=== PATIENT | male | born 1945 | race Caucasian/White ===

== ENCOUNTER → 2024-10-13 | Outpatient (CLI) | payer MEDICARE, BC, SELFPAY ==
--- NOTE | 2024-10-13 11:51 | XR_ITS ---
Examination: Abdomen AP single view Technique: AP portable supine abdomen, single view Exam date and time: October 13, 2024 1257 hours INDICATIONS: Abdominal pain this week FINDINGS: Right renal calculi, the largest 6 mm Nonobstructive bowel gas pattern No calcified gallstones noted IMPRESSION: Right renal calculi
== END | disposition home or self-care (01) ==
LOC: CDIM 11:39
PROVIDERS: Referring Provider Specialist; Visit Provider Specialist
DX: N20.0 Calculus of kidney (principal)
CPT/HCPCS: 74018

== ENCOUNTER → 2024-10-28 | Outpatient (CLI) | payer MEDICARE, BC, SELFPAY ==
[2024-10-28 11:00] LABS: Prostate Specific Antigen 5.55 ng/mL (0-4.00)
== END | disposition home or self-care (01) ==
LOC: COPL 09:00
PROVIDERS: PCP Internal Medicine; Referring Provider Urology; Visit Provider Urology
DX: R97.20 Elevated prostate specific antigen [PSA] (principal)
CPT/HCPCS: 36415; 84153

== ENCOUNTER 2024-12-01 06:15 | Day surgery (SDC) | payer MEDICARE, BC, SELFPAY ==
--- NOTE | 2024-11-30 07:00 | EKG_ITS ---
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
[2024-11-30 09:50] VITALS: BMI 23.9
[2024-11-30 12:10] LABS: Basophils # (Auto) 0.1 Thou/mm3 (0.0-0.2); Basophils % (Auto) 1 % (0-2.5); Eosinophils # (Auto) 0.2 Thou/mm3 (0.0-0.5); Eosinophils % (Auto) 2 % (0-10); Hematocrit 42.1 % (41.0-53.0); Immature Granulocytes % (Auto) 0 % (0-0); Immature Granulocytes Auto 0.02 Thou/mm3 (0.00-0.00); Lymphocytes # (Auto) 2.4 Thou/mm3 (1.0-4.8); Lymphocytes % (Auto) 31 % (10-50); Mean Corpuscular HGB Conc 33.3 g/dl (31.0-37.0); Mean Corpuscular Hemoglobin 31.4 pg (25.0-35.0); Mean Corpuscular Volume 94 fL (80-100); Monocytes # (Auto) 0.5 Thou/mm3 (0.0-0.8); Monocytes % (Auto) 7 % (0-12); Neutrophils # (Auto) 4.6 Thou/mm3 (1.8-7.7); Neutrophils % (Auto) 59 % (37-80); Nucleated Red Blood Cell % 0 /100 WBC (0); Platelet Count 265 Thou/mm3 (140-440); Red Blood Count 4.46 Miln/mm3 (4.50-5.90); White Blood Count 7.8 Thou/mm3 (3.8-10.6)
[2024-11-30 12:24] LABS: INR 1.1 (0.9-1.3); Prothrombin Time 11.5 Seconds (9.0-12.2)
[2024-11-30 12:31] LABS: Alanine Aminotransferase 13 U/L (10-49); Albumin, Serum 4.4 gm/dL (3.4-4.8); Albumin/Globulin Ratio 2.1 (1.2-2.2); Alkaline Phosphatase 113 U/L (46-116); Anion Gap 6 (7-16); Aspartate Amino Transferase < 8 U/L (0-34); BUN/Creatinine Ratio 25 Ratio (12-20); Bilirubin,Total 0.7 mg/dL (0.3-1.2); Blood Urea Nitrogen 25 mg/dL (9-23); Carbon Dioxide 26.6 mMol/L (20.0-31.0); Chloride 106 mMol/L (98-107); Estimated Creatinine Clearance 61.8 mL/min (>60); Globulin 2.1 gm/dL (2.3-3.5); Glucose 92 mg/dL (74-106); Osmolality,Calculated 281 (275-295); Potassium 3.9 mMol/L (3.4-5.1); Sodium 139 mMol/L (136-145); Total Protein 6.5 gm/dL (5.7-8.2); eGFR > 60 See Note
--- NOTE | 2024-11-30 14:40 | SUR.PREOP ---
Pt notified to come in at 0630 tomorrow for surgery.
--- NOTE | 2024-11-30 14:57 | SUR.PREOP ---
Cardiac records reviewed with Dr Montgomery.
[2024-12-01] VITALS (14 sets, daily range): BP systolic 114–165; BP diastolic 68–98; PULSE 52–108; RESP 12–20; TEMP 36.2–36.8; O2SAT 91–98; BMI 23.6
--- NOTE | 2024-12-01 09:21 | PD.SUROPNT ---
Date of Procedure 12/01/24 Pre Op Diagnosis Symptomatic cholelithiasis Post Op Diagnosis Cholelithiasis with cholecystitis Procedure Laparoscopic cholecystectomy Findings Moderately distended gallbladder with multiple gallstones and chronic cholecystitis. Anterior surface of the liver was smooth without nodules or any lesions Procedure Description Patient was brought into the operating room in supine position. After administration of general endotracheal anesthesia abdomen was prepped and draped in standard surgical manner. A Veress needle was inserted through the umbilicus and pneumoperitoneum was obtained up to 15 mmHg. The Veress needle was then removed, a 5 mm infraumbilical incision was made and the 5mm trocar was inserted. Laparoscopic camera was placed. Under direct visualization a laparoscopic camera a 10 mm trocar was placed in subxiphoid and two 5 mm trocars placed in right upper quadrant. The anterior surface of the liver was smooth without nodules or any lesions. The gallbladder was identified and was noted to be moderately distended with multiple gallstones and chronic cholecystitis. It was retracted cephalad and laterally. Dissection started near the infundibulum of gallbladder where cystic duct and gallbladder junction clearly identified. The cystic duct was circumferentially dissected off the peritoneum and surrounding inflammatory tissue. The critical view of safety was clearly demonstrated. Cystic duct was then divided between 2 endoclips proximally and one distally. The cystic artery was similarly dissected and divided. The gallbladder was then from the liver bed using electrocautery. The gallbladder was then placed inside an Endo Catch and removed from the abdomen utilizing subxiphoid trocar site. The area was copiously and thoroughly washed and irrigated, all the fluid was suctioned and the suction fluid returned clear. Hemostasis achieved using electrocautery. Endoclips noted be in place and intact without any bleeding or any leakage. Hemostasis was adequate and satisfactory. The subxiphoid trocar sites fascial defect was closed with 0 Vicryl. Instruments and trocars removed, pneumoperitoneum was evacuated and the incisions closed with 4-0 Monocryl in subcuticular fashion. Instrument needle and sponge counts were all reported to be correct X2. Patient tolerated the procedure well, was extubated, breathing spontaneously and without difficulty and was transferred to postanesthesia care in stable condition. Anesthesia GETA and local Pathology / specimen Other (Gallbladder and contents) Estimated Blood Loss 10 Condition Stable Disposition PACU Surgeon Charlene Padilla MD Surgical Staff Operation Date: 12/01/24 08:45 Case Staff ROLL TABLE OPERATOR: Adelso Spicer RN First Assistant: Izabel Ellis
--- NOTE | 2024-12-01 09:30 | SUR.PHASEI ---
0930 Patient arrived to recovery resting comfortably in [facility], sleeping and able to arouse with verbal prompting, on oxygen 10L via oxy mask, breathing unlabored, vital signs stable, denies pain, dressing intact to abdomen; dermabond, no bleeding noted, lung sounds clear upon auscultation, bilateral radial pulses present when palpated, report received from Klever MOE and Margarito CHASE
--- NOTE | 2024-12-01 10:02 | SUR.PHASEI ---
1002 Patient called PACU for update on her , all questions answer said she would arrive to hospital at 1113
--- NOTE | 2024-12-01 10:37 | SUR.PHASEI ---
patient continues to be in and out of alertness, will arouse know his name and then drifts back to deep sleep, anesthesia provider at bedside assessing patient no new orders received will continue to monitor patient
--- NOTE | 2024-12-01 10:47 | SUR.PHASEI ---
verbal order with read back received from Klever MOE, Zofran 4mg via IV, will place order in EMR and administer per order
[2024-12-01] MEDS: ONDANSETRON INJ 2 MG/ML INJ 2 ML 4 MG IV (11:00)
--- NOTE | 2024-12-01 11:20 | SUR.PHASEII ---
1120 patient drifting to sleep and oxygen level decreasing to 88-90%, oxygen therapy reinstated 4L via oxy mask
--- NOTE | 2024-12-01 11:35 | SUR.PHASEII ---
1135 Working with patient using incentive spirometer
--- NOTE | 2024-12-01 12:12 | SUR.PHASEII ---
1212 Patient meets discharge criteria from recovery, awake and alert, breathing unlabored, vital signs stable, denies pain, dressing intact; no bleeding noted, denies nausea, patient voided in urinal 200ml, patient assisted with dressing into his clothing by his , discharge instructions given to patient and patient , signed discharge instructions. Patient given all his belongings prior to discharge, transported via wheelchair and left in a private vehicle.
== END 2024-12-01 12:12 | disposition home or self-care (01) ==
PROVIDERS: PCP Internal Medicine; Referring Provider Surgery; Visit Provider Surgery
PROC: 0FT44ZZ Resection of Gallbladder, Percutaneous Endoscopic Approach (ICD-10-PCS; CPT 47562; principal; 2024-12-01 08:30)
DX: K80.10 Calculus of gallbladder with chronic cholecystitis without obstruction (principal); Z01.810 Encounter for preprocedural cardiovascular examination
CPT/HCPCS: 47562; 36415; 80053; 85025; 85610; 93005; A4217; A4649; J0131; J0694; J2250; J2310; J2371; J2405; J2704; J3010; J3490

== ENCOUNTER → 2024-12-23 | Outpatient (CLI) | payer MEDICARE, BC, SELFPAY ==
[2024-12-23 08:49] LABS: Collection Type, Urine Clean Catch
--- NOTE | 2024-12-23 09:11 | XR_ITS ---
Examination: CT abdomen with intravenous contrast CT pelvis with intravenous contrast 2-D coronal reconstructions 2-D sagittal reconstructions Date and time of exam:December 23, 2024 0936 hours INDICATIONS: Generalized abdominal pain and distention beginning one week ago COMPARISON: 07/24/2021. CTDI: vol (mGy) 7.63 DLP: (mGycm) 644 Technique: Multiple axial sections of the abdomen and pelvis have been obtained. 64 slice high-resolution scanner used. 3 mm axial sections have been obtained, post intravenous injection 60 cc [id number] 2-D sagittal, coronal reconstructions obtained. Low dose protocols were performed. One or more of the following dose reduction techniques were used; automated exposure control, adjustment of the mA and/or KV according to patient size, use of iterative reconstruction technique. Findings: Heavy calcification left anterior descending coronary artery Retrocardiac gastric hernia No focal liver or splenic lesion Absent gallbladder No pancreatic or adrenal mass 8mm lower pole right renal calculus, 3.7 cm lower pole right renal cyst Abdominal aortic calcification no aneurysmal dilatation Mildly fluid distended small bowel loops No obstruction No pericecal inflammatory change Colonic diverticulosis No bladder mass Transverse prostate dimension 3.3 cm Extensive lumbar fusion IMPRESSION: Fluid distended small bowel loops, consider enteritis, ileus 8mm lower pole nonobstructing right renal calculus
[2024-12-23 09:38] LABS: Basophils # (Auto) 0.1 Thou/mm3 (0.0-0.2); Basophils % (Auto) 1 % (0-2.5); Eosinophils # (Auto) 0.2 Thou/mm3 (0.0-0.5); Eosinophils % (Auto) 3 % (0-10); Hematocrit 45.7 % (41.0-53.0); Immature Granulocytes % (Auto) 0 % (0-0); Immature Granulocytes Auto 0.02 Thou/mm3 (0.00-0.00); Lymphocytes # (Auto) 2.7 Thou/mm3 (1.0-4.8); Lymphocytes % (Auto) 39 % (10-50); Mean Corpuscular HGB Conc 32.8 g/dl (31.0-37.0); Mean Corpuscular Hemoglobin 31.3 pg (25.0-35.0); Mean Corpuscular Volume 95 fL (80-100); Monocytes # (Auto) 0.6 Thou/mm3 (0.0-0.8); Monocytes % (Auto) 9 % (0-12); Neutrophils # (Auto) 3.3 Thou/mm3 (1.8-7.7); Neutrophils % (Auto) 48 % (37-80); Nucleated Red Blood Cell % 0 /100 WBC (0); Platelet Count 319 Thou/mm3 (140-440); RDW Standard Deviation 43.3 fL (35.1-43.9); White Blood Count 6.9 Thou/mm3 (3.8-10.6)
[2024-12-23 09:40] LABS: Bilirubin,Urine Negative (Negative); Blood,Urine Negative (Negative); Clarity,Urine Clear (Clear/Hazy); Color,Urine Yellow (Lt Yel-Yel); Glucose, Urine Negative (Negative); Ketones,Urine Negative (Negative); Leukocyte Esterase,Urine Negative (Negative); Nitrite,Urine Negative (Negative); PH,Urine 6.5 (5.0-7.0); Protein,Urine Negative (Neg - Trace); RBC,Urine 3 /hpf (0-3); Squamous Epithelial Cell,Urine < 1 /hpf (0-5); WBC,Urine 4 /hpf (0-5)
[2024-12-23 09:50] LABS: Alanine Aminotransferase 16 U/L (10-49); Albumin, Serum 4.4 gm/dL (3.4-4.8); Albumin/Globulin Ratio 1.8 (1.2-2.2); Alkaline Phosphatase 121 U/L (46-116); Amylase 70 U/L (30-118); Anion Gap 7 (7-16); Aspartate Amino Transferase 18 U/L (0-34); BUN/Creatinine Ratio 20 Ratio (12-20); Bilirubin,Total 0.6 mg/dL (0.3-1.2); Blood Urea Nitrogen 20 mg/dL (9-23); Calcium 9.4 mg/dL (8.3-10.6); Calcium (Corrected) 9.4 mg/dL (8.5-10.1); Carbon Dioxide 28.7 mMol/L (20.0-31.0); Chloride 104 mMol/L (98-107); Globulin 2.4 gm/dL (2.3-3.5); Glucose 74 mg/dL (74-106); Lipase 37 U/L (12-53); Osmolality,Calculated 281 (275-295); Potassium 3.9 mMol/L (3.4-5.1); Sodium 140 mMol/L (136-145); Total Protein 6.8 gm/dL (5.7-8.2); eGFR > 60 See Note
== END | disposition home or self-care (01) ==
PROVIDERS: PCP Internal Medicine; Referring Provider Specialist; Visit Provider Specialist
DX: K63.89 Other specified diseases of intestine (principal); N20.0 Calculus of kidney
CPT/HCPCS: 36415; 74177; 80053; 81001; 82150; 83690; 85025; A4649; Q9967

== ENCOUNTER → 2025-01-26 | Outpatient (CLI) | payer MEDICARE, BC, SELFPAY ==
--- NOTE | 2025-01-26 09:00 | XR_ITS ---
Examination: Upper GI series with KUB Esophagram standard Fluoroscopy 16 spot fluoroscopic films of the esophagus and stomach Exam date and time: January 26, 2025 1201 hours INDICATIONS: Status post cholecystectomy one month ago stomach surgery several years ago, abdominal pain TECHNIQUE AND FINDINGS: Engraver Jewelry film multiple lower pole right renal calculi, the largest 6 mm Patient swallowed thin barium with 16 spot fluoroscopic films of the esophagus stomach and duodenum Esophageal dysmotility with numerous secondary and tertiary esophageal contractions Large esophageal hernia with moderate intermittent gastroesophageal reflux No gastric ulceration or deformity Duodenal bulb exhibits mucosal fold thickening Small bowel loops are mildly dilated IMPRESSION: Severe esophageal dysmotility Large esophageal hernia with moderate intermittent gastroesophageal reflux Active peptic disease duodenum bulb
== END | disposition home or self-care (01) ==
PROVIDERS: PCP Internal Medicine; Referring Provider Specialist; Visit Provider Specialist
DX: K22.89 Other specified disease of esophagus (principal); K21.9 Gastro-esophageal reflux disease without esophagitis; K44.9 Diaphragmatic hernia without obstruction or gangrene; K30 Functional dyspepsia
CPT/HCPCS: 74240; Z7610

== ENCOUNTER → 2025-04-06 | Outpatient (CLI) | payer MEDICARE, BC, SELFPAY ==
--- NOTE | 2025-04-06 13:45 | XR_ITS ---
Examination: MRI lumbar spine without contrast Date and time of exam: April 06, 2025 1429 hours Comparison July 19, 2014 INDICATIONS: Lower back pain one year, lumbar spine surgery 2014 Technique: Multiple MRI axial and sagittal sections lumbar spine. Sagittal T2-weighted images, TR 3500, TE 118 T1 weighted transverse sections, TR 688 T8.5, T2-weighted sagittal sections T1 weighted sagittal sections TR 621, TE 30 T2 axial sections, TR 4, 190, TE 84. Findings: Lumbar fusion L4-L5 with satisfactory alignment, with transpedicular fixation screws L2, L3 S1 Diffuse advanced lumbar disc narrowing No lumbar fracture L5-S1 3 mm central lumbar disc bulge with moderate right neural foraminal stenosis L4-L5 no disc protrusion L3-L4 no disc protrusion L2-L3 no disc protrusion L1-2 no disc protrusion IMPRESSION: No significant acquired spinal stenosis
== END | disposition home or self-care (01) ==
PROVIDERS: PCP Internal Medicine; Referring Provider Internal Medicine; Visit Provider Internal Medicine
DX: M54.50 Low back pain, unspecified (principal)
CPT/HCPCS: 72148

== ENCOUNTER → 2025-04-06 | Outpatient (CLI) | payer MEDICARE, BC, SELFPAY ==
[2025-04-06 17:01] LABS: Prostate Specific Antigen 7.32 ng/mL (0-4.00)
== END | disposition home or self-care (01) ==
PROVIDERS: PCP Internal Medicine; Referring Provider Urology; Visit Provider Urology
DX: C61 Malignant neoplasm of prostate (principal)
CPT/HCPCS: 36415; 84153

== ENCOUNTER → 2025-04-14 | Outpatient (CLI) | payer MEDICARE, BC, SELFPAY ==
[2025-04-14 17:47] LABS: Basophils # (Auto) 0.1 Thou/mm3 (0.0-0.2); Basophils % (Auto) 1 % (0-2.5); Eosinophils # (Auto) 0.2 Thou/mm3 (0.0-0.5); Eosinophils % (Auto) 2 % (0-10); Hematocrit 43.2 % (41.0-53.0); Hemoglobin 14.7 g/dL (13.5-16.0); Immature Granulocytes % (Auto) 0 % (0-0); Immature Granulocytes Auto 0.02 Thou/mm3 (0.00-0.00); Lymphocytes # (Auto) 2.8 Thou/mm3 (1.0-4.8); Lymphocytes % (Auto) 29 % (10-50); Mean Corpuscular Volume 94 fL (80-100); Monocytes # (Auto) 0.7 Thou/mm3 (0.0-0.8); Monocytes % (Auto) 8 % (0-12); Neutrophils # (Auto) 5.7 Thou/mm3 (1.8-7.7); Neutrophils % (Auto) 60 % (37-80); Nucleated Red Blood Cell % 0 /100 WBC (0); Platelet Count 252 Thou/mm3 (140-440); RDW Standard Deviation 44.7 fL (35.1-43.9); White Blood Count 9.5 Thou/mm3 (3.8-10.6)
[2025-04-14 18:00] LABS: INR 1.1 (0.9-1.3); Partial Thromboplastin Time 30.1 Seconds (22.0-36.0); Prothrombin Time 11.8 Seconds (9.0-12.2)
[2025-04-14 19:30] LABS: Alanine Aminotransferase 19 U/L (10-49); Albumin, Serum 4.3 gm/dL (3.4-4.8); Albumin/Globulin Ratio 1.8 (1.2-2.2); Alkaline Phosphatase 125 U/L (46-116); Anion Gap 12 (7-16); Aspartate Amino Transferase 26 U/L (0-34); BUN/Creatinine Ratio 15 Ratio (12-20); Bilirubin,Total 0.7 mg/dL (0.3-1.2); Blood Urea Nitrogen 17 mg/dL (9-23); Calcium 9.1 mg/dL (8.3-10.6); Calcium (Corrected) 9.1 mg/dL (8.5-10.1); Carbon Dioxide 24.5 mMol/L (20.0-31.0); Cardiac Risk Estimate 2.7 RATIO (4.0-6.7); Chloride 107 mMol/L (98-107); Cholesterol 173 mg/dL (132-200); Creatinine (Component) 1.1 mg/dL (0.6-1.3); Globulin 2.4 gm/dL (2.3-3.5); Glucose 91 mg/dL (74-106); HDL Cholesterol 65 mg/dL (40-60); LDL Cholesterol,Calculated 90 mg/dL (0-130); Osmolality,Calculated 286 (275-295); Potassium 4.2 mMol/L (3.4-5.1); Sodium 143 mMol/L (136-145); Thyroid Stimulating Hormone 4.43 uIU/mL (0.55-4.78); Total Protein 6.7 gm/dL (5.7-8.2); Triglycerides 91 mg/dL (30-150); eGFR > 60 See Note
== END | disposition home or self-care (01) ==
LOC: COPL 17:09
PROVIDERS: PCP Internal Medicine; Referring Provider Internal Medicine; Visit Provider Internal Medicine
DX: Z01.818 Encounter for other preprocedural examination (principal); I48.91 Unspecified atrial fibrillation
CPT/HCPCS: 36415; 80053; 80061; 84443; 85025; 85610; 85730

== ENCOUNTER 2025-05-09 16:29 | Observation (INO) | payer MEDICARE, BC, SELFPAY ==
--- NOTE | 2025-05-09 16:36 | EKG_ITS ---
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1945 Requested By: ED Temporary Provider Order Number: [id number] Reading MD: ED Temporary Provider Measurements Intervals [place] Rate: 122 P: CA: QRS: -36 QRSD: 66 T: 16 QT: 283 QTc: 405 Interpretive Statements ATRIAL FIBRILLATION WITH RAPID VENTRICULAR RESPONSE POSSIBLE ANTERIOR MYOCARDIAL INFARCTION , PROBABLY OLD [30 ms Q WAVE IN V3/V4, OR R < 0.2 mV IN V4] INFERIOR MYOCARDIAL INFARCTION , PROBABLY OLD [40+ ms Q WAVE AND/OR ST/T ABNORMALITY IN II/aVF] Compared to ECG 11/30/2024 10:36:25 Myocardial infarct finding now present Sinus bradycardia no longer present /store/S0/[id number]/ecg/[id number].pdf
[2025-05-09 16:44] VITALS: BP 117/71; PULSE 122; RESP 18; TEMP 36.6; O2SAT 95; BMI 22.2
--- NOTE | 2025-05-09 16:46 | XR_ITS ---
Examination: CT brain head without contrast. 2-D sagittal coronal reconstructions Date and time of exam:May 09, 2025 1809 hours INDICATIONS: Headache dizziness beginning 3 days ago CTDI: vol (mGy):46 DLP: (mGycm):934 Technique: Multiple CT axial sections of the brain have been obtained, 5 mm slice thickness. Contrast has not been administered. 2-D sagittal, coronal reconstructions have been obtained Low dose protocols were performed. One or more of the following dose reduction techniques were used; automated exposure control, adjustment of the mA and/or KV according to patient size, use of iterative reconstruction technique. Findings: No significant ventricular enlargement. Intra-axial or extra-axial hemorrhage density is not seen. No mass effect or midline shift Basal cisterns are not remarkable. Fourth ventricle is midline. Cranial vault intact. Impression: Negative for acute hemorrhage, mass effect or midline shift Advise clinical correlation follow up accordingly
--- NOTE | 2025-05-09 16:46 | XR_ITS ---
Examination: PA and lateral chest 2 views Technique upright PA lateral chest 2 views Date and time: May 09, 2025 1642 hours Comparison May 08, 2021 INDICATIONS: Chest pain shortness of breath today. FINDINGS: Again noted moderate elevation right hemidiaphragm Normal heart size No lobar pneumonia or pulmonary edema Chronic compression T7 with advanced degenerative disc disease T8-T9, T9-T10, T10-T11 IMPRESSION: No pneumonia or pulmonary edema
--- NOTE | 2025-05-09 16:47 | PD.EDRME ---
Rapid Medical Screening Exam RME Arrival date/time: 05/09/25 16:29 79-year-old male presents emergency department today for complaints of dizziness headache and fatigue Chief Complaint: Dizziness
[2025-05-09 17:17] LABS: Basophils % (Auto) 0 % (0-2.5); Eosinophils % (Auto) 0 % (0-10); Hematocrit 45.1 % (41.0-53.0); Hemoglobin 15.3 g/dL (13.5-16.0); Immature Granulocytes % (Auto) 1 % (0-0); Immature Granulocytes Auto 0.08 Thou/mm3 (0.00-0.00); Lymphocytes # (Auto) 2.6 Thou/mm3 (1.0-4.8); Lymphocytes % (Auto) 21 % (10-50); Mean Corpuscular HGB Conc 33.9 g/dl (31.0-37.0); Mean Corpuscular Hemoglobin 31.7 pg (25.0-35.0); Mean Corpuscular Volume 93 fL (80-100); Monocytes % (Auto) 8 % (0-12); Neutrophils # (Auto) 8.7 Thou/mm3 (1.8-7.7); Neutrophils % (Auto) 70 % (37-80); Nucleated Red Blood Cell % 0 /100 WBC (0); Platelet Count 303 Thou/mm3 (140-440); RDW Standard Deviation 44.4 fL (35.1-43.9); Red Blood Count 4.83 Miln/mm3 (4.50-5.90); White Blood Count 12.4 Thou/mm3 (3.8-10.6)
[2025-05-09 17:37] VITALS: BP 127/71; PULSE 76; PULSE 78; RESP 19; O2SAT 97
[2025-05-09 17:37] LABS: B-Type Natriuretic Peptide < 20 pg/mL (0-100)
[2025-05-09 17:38] LABS: Alanine Aminotransferase 41 U/L (10-49); Albumin, Serum 4.1 gm/dL (3.4-4.8); Alkaline Phosphatase 97 U/L (46-116); Anion Gap 8 (7-16); Aspartate Amino Transferase 20 U/L (0-34); BUN/Creatinine Ratio 21 Ratio (12-20); Bilirubin,Total 0.5 mg/dL (0.3-1.2); Blood Urea Nitrogen 31 mg/dL (9-23); Calcium 8.8 mg/dL (8.3-10.6); Calcium (Corrected) 8.8 mg/dL (8.5-10.1); Carbon Dioxide 26.4 mMol/L (20.0-31.0); Chloride 106 mMol/L (98-107); Creatinine (Component) 1.5 mg/dL (0.6-1.3); Estimated Creatinine Clearance 39.7 mL/min (>60); Globulin 2.1 gm/dL (2.3-3.5); Glucose 118 mg/dL (74-106); Magnesium 2.4 mg/dL (1.6-2.6); Osmolality,Calculated 286 (275-295); Sodium 140 mMol/L (136-145); Total Protein 6.2 gm/dL (5.7-8.2); Troponin I < 0.020 ng/mL (0.0-0.045); eGFR 47 See Note
[2025-05-09 17:43] LABS: INR 0.9 (0.9-1.3); Partial Thromboplastin Time 25.1 Seconds (22.0-36.0); Prothrombin Time 10.4 Seconds (9.0-12.2)
--- NOTE | 2025-05-09 18:24 | PC.NURSE ---
Patient presents to ED with c/o right eye blurred vision and dilated since 10am. Patient was mowing lawn at home, went inside after and had girlfriend check eye due to blurriness. Patient is alert, oriented, ambulatory no weakness noted. Patient was seen by PMD and then referred to ED. Updated patient with plan of care, call light within reach.
[2025-05-09 18:25] VITALS: BP 124/71; PULSE 73; RESP 17; TEMP 36.6; O2SAT 98
--- NOTE | 2025-05-09 19:05 | PC.NURSE ---
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
[2025-05-09 19:23] LABS: Collection Type, Urine Clean Catch; Squamous Epithelial Cell,Urine 0 /hpf (0-5)
--- NOTE | 2025-05-09 19:32 | EKG_ITS ---
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
[2025-05-09 19:37] LABS: Bilirubin,Urine Negative (Negative); Blood,Urine Negative (Negative); Clarity,Urine Clear (Clear/Hazy); Color,Urine Lt-Yellow (Lt Yel-Yel); Glucose, Urine Negative (Negative); Ketones,Urine Negative (Negative); Leukocyte Esterase,Urine Negative (Negative); Nitrite,Urine Negative (Negative); Protein,Urine Negative (Neg - Trace); RBC,Urine 4 /hpf (0-3); Urobilinogen,Urine Negative mg/dL (0.0-1.0); WBC,Urine 2 /hpf (0-5)
[2025-05-09 20:00] VITALS: BP 114/71; PULSE 70; RESP 17; TEMP 36.8; O2SAT 93
--- NOTE | 2025-05-09 20:18 | EDNOTE_ITS ---
ED Dizzyness RME/HPI General Chief Complaint: Dizziness Stated Complaint: DIZZY, HEART FEELS FUNNY X 2 DAYS Time Seen by Provider: 05/09/25 19:19 Arrival date/time: 05/09/25 16:29 Limitations: no limitations RME / HPI RME / HPI Narrative: 05/09/25 16:29 79-year-old male presents emergency department today for complaints of dizziness headache and fatigue. He states his symptoms started this morning. He has had no nausea or vomiting. No near syncopal episodes or fall. He has no abdominal pain or diarrhea. Denies any recent illness including congestion or cough. Has no fevers. Has no urinary complaints. Related Data Home Medications ?Medication ?Instructions ?Recorded ?Confirmed losartan 100 mg tablet 100 mg PO DAILY 09/26/2407/17 diltiazem HCl 180 mg 180 mg PO Q24H 05/09/2504/23 tablet,extended release 24 hr olmesartan 40 1 tab PO DAILY 05/09/2504/23 mg-hydrochlorothiazide 12.5 mg tablet Previous Rx's ?Medication ?Instructions ?Recorded docusate sodium 100 mg capsule 100 mg PO BID #40 caps 12/01/24 (Colace) hydrocodone 5 mg-acetaminophen 325 1 tab PO Q6H PRN pa in (scale score 12/01/24 mg tablet 7-10) #15 tabs hydrocodone 5 mg-acetaminophen 325 1 tab PO Q6H PRN pa in (scale score 12/14/24 mg tablet 7-10) #20 tabs Allergies Allergy/AdvReac Type Severity Reaction Status Date / Time No Known Allergies Allergy Verified 05/09/25 16:32 Review of Systems Review of Systems Systems Reviewed: All systems reviewed, normal except as documented ED Exam General Limitations: Present no limitations General appearance: Present alert and in no apparent distress Head Head exam: Present atraumatic Eye Eye exam: Present normal appearance, PERRL and EOMI ENT ENT exam: Present normal exam, normal oropharynx and mucous membranes moist Neck Neck exam: Present normal inspection, full ROM and trachea midline Chest Chest inspection: Present normal inspection and symmetric chest wall rise Respiratory Respiratory exam: Present normal lung sounds bilaterally Cardiovascular Cardiovascular exam: Present regular rate, normal rhythm and normal heart sounds Abdominal Exam Abdominal exam: Present soft and normal bowel sounds Extremities Exam Extremities exam: Present normal inspection and full ROM Back Exam Back exam: Present normal inspection and full ROM Neurological Exam Neurological exam: Present alert, oriented X3 and CN II-XII intact Psychiatric Psychiatric exam: Present normal affect and normal mood Skin Skin exam: Present warm, dry, intact and normal color Course Quality Measures none Orders Category Date Time Status COVID-19 Screening Questionnaire NOW Care 05/09/25 20:27 Active Loan Reviewer NOW Care 05/09/25 16:46 Active Decision to Admit X1 Care 05/09/25 20:27 Active EKG (ED ONLY) *Do not use* NOW Care 05/09/25 16:36 Completed EKG (ED ONLY) *Do not use* NOW Care 05/09/25 19:32 Completed Consult to Cardiology Stat Cons 05/09/25 20:[address] head/brain wo con Stat Exams 05/09/25 16:46 Completed EKG (ED Only) Stat Exams 05/09/25 16:36 Draft EKG (ED Only) Stat Exams 05/09/25 19:32 Draft XR chest 2V Stat Exams 05/09/25 16:46 Completed B-Type Natriuretic Peptide Stat Lab 05/09/25 17:08 Completed CBC Stat Lab 05/09/25 17:08 Completed Comprehensive Metabolic Panel Stat Lab 05/09/25 17:08 Completed Drug Screen,Urine Stat Lab 05/09/25 19:08 Received Magnesium Stat Lab 05/09/25 17:08 Completed Partial Thromboplastin Time Stat Lab 05/09/25 17:08 Completed Prothrombin Time with INR Stat Lab 05/09/25 17:08 Completed Troponin I Stat Lab 05/09/25 17:08 Completed Urinalysis Stat Lab 05/09/25 19:08 Completed Sodium Chloride 0.9% 1000 ml [Ns] 1,000 ml Med 05/09/25 20:09 Active IV 999 mls/hr Vital Signs Vital signs: Vital Signs Temperature 98 F 05/09/25 16:44 Pulse Rate 122 H 05/09/25 16:44 Respiratory Rate 18 05/09/25 16:44 Blood Pressure 117/71 05/09/25 16:44 Pulse Oximetry (%) 95 05/09/25 16:44 Oxygen Delivery Method Room Air 05/09/25 16:44 Dizziness MDM Narrative MDM Narrative:: 79-year-old male who is here today with dizziness that started this morning. He has no unilateral weakness or aphasia. Denies headache although he states he feels like I am in a fog . He denies any syncope. Patient was initially seen in [facility] and had a EKG that was performed, this obtained at 1640 6 PM and reveals A-fib with RVR with a rate at 122. Patient denies history of cardiac dysrhythmia, alcohol abuse, or drug use. His work appears essentially unrem arkable with the exception of his dysrhythmia and LATA. At the time of my exam, patient did appeared to be in sinus rhythm with a monitor technician and a repeat EKG was obtained and revealed the patient was in sinus rhythm. Review of his lab results reveal the patient has an LATA with a creatinine of 1.5. This was discussed with cardiology, Dr. Pennington was consulted like the patient admitted to medicine. He is requesting cardiac echo. He will follow-up. Case discussed with internal medicine resident who agrees except the patient. Patient data External records reviewed:: [facility] previous records Clinical information provided by:: patient Social determinants that could affect healthcare access:: none Patient has the following chronic illnesses:: Hypertension How is presenting disease/condition affected by chronic disease/condition?: uneffected by Evaluation data The following diagnostics were reviewed and interpreted by me:: lab results, radiology exam(s) and EKG tracing(s) Lab and/or radiology exams considered but not ordered:: n/a Interpretation Summary: Proximal atrial fibrillation, LATA Medications / Prescriptions Medications or Prescriptions considered but not ordered:: n/a Medication administrations:: Medication Administration History Sodium Chloride (Ns) 1,000 mls @ 999 mls/hr IV .Q1H1M ONE Stop: 05/09/25 21:09 See above Consultations Consultation(s) initiated? (list below): Yes Diagnosis Most likely diagnosis given after review of the tests above:: Proximal fibrillation, LATA Admission Indicated Admission indicated?: indicated Admission Request Was there a request for admission?: No Disposition Plan Disposition Plan: Admit Discharge Plan Plan Patient Disposition: Admit Acute Care w/in Hospital Patient condition on transfer: Stable Prescriptions/Referrals Prescriptions/Med Rec: No Action losartan 100 mg tablet 100 mg PO DAILY Patient Comments: TAKE 1 TABLET BY MOUTH DAILY docusate sodium [Colace] 100 mg capsule 100 mg PO BID Qty: 40 0RF hydrocodone-acetaminophen 5-325 mg tablet 1 tab PO Q6H MDD 4 PRN (Reason: pain (scale score 7-10)) Qty: 15 0RF hydrocodone-acetaminophen 5-325 mg tablet 1 tab PO Q6H MDD 4 PRN (Reason: pain (scale score 7-10)) Qty: 20 0RF diltiazem HCl 180 mg tablet extended release 24 hr 180 mg PO Q24H Patient Comments: TAKE 1 TABLET BY MOUTH DAILY olmesartan-hydrochlorothiazide 40-12.5 mg tablet 1 tab PO DAILY Patient Comments: TAKE 1 TABLET BY MOUTH DAILY Referrals: Lenora Davis MD [Primary Care Provider] - In 1 week Problem List Clinical Impression: Paroxysmal A-fib, LATA (acute kidney injury) Patient/Caregiver Discharge Instructions Print Language: Ukrainian Stand Alone Forms: Sharon Award Info., Patient Portal Info Letter
[2025-05-09 20:55] LABS: Amphetamine/Methamp Scrn,U Negative (Negative); Barbiturate Screen,Urine Negative (Negative); Benzodiazepines Screen,Urine Negative (Negative); Benzoylecgonine Screen, Ur Negative (Negative); Fentanyl Screen,Urine Negative (Negative); Opiate Screen,Urine Negative (Negative); THC Screen,Urine Negative (Negative)
[2025-05-09] MEDS: SODIUM CHLORIDE 0.9% 1000 ML 1,000 ML 999 ML IV (20:55)
--- NOTE | 2025-05-09 20:57 | PD.ADDPROG ---
Addendum Progress Note Addendum Date of report being addended: 05/09/25 Narrative: I Teo Daly MD reviewed the note and agree with the resident's assessment & plan with exceptions as below. I have personally reviewed labs, imaging, home meds/prior records, examined the patient, formulated and discussed management plan with the IM team. A 79-year-old M with Hx of HTN, AF (anticoagulation on hold due to upcoming surgery) presented with dizziness noted to be in A-fib with RVR it spontaneously reverted back to NSR with IVF resuscitation. Patient also had LATA likely prerenal in nature due to dehydration triggering AF. Plan to continue gentle IVF resuscitation with repeat chemistry panel and echocardiogram. Will optimize rate control and HTN management with diltiazem and carvedilol.
--- NOTE | 2025-05-09 21:28 | PD.RESHP ---
Documentation for date of: 05/09/25 HPI History of Present Illness Chief complaint: Dizziness History of present illness: 79-year-old male with past medical history of hypertension, paroxysmal A-fib, GERD who presented to the ED due to dizziness. This afternoon patient started feeling what he describes as palpitations, he states he has had these before however today they felt worse and decided to come to the ED. Patient also endorses some blurry vision, dizziness, decreased energy and a burning sensation in the epigastric area and generalized weakness. He also states he felt some mild chest pain rated 1?2 out of 10 on his left side described as stabbing and pressure-like with associated shortness of breath. All the symptoms started after working outside. Of note patient also endorses he drinks 1 beer a day every day. He also states he is having surgery on Thursday and would like to avoid taking his Eliquis at this time. At this time patient denies any fever, chills, orthopnea, PND, history of heart failure, leg swelling, recent travel, sick contacts, urinary or bowel changes. ED course: ED vitals: BP 117/71, HR 122, RR 18, saturating 95% on room air ED labs: Leukocytosis, BUN 31, creatinine 1.5, glucose 118, negative troponins, negative BNP, UA negative, U tox negative, head CT negative, chest x-ray negative for any infectious pathology. Initial EKG showed atrial fibrillation with RVR however patient later converted to sinus rhythm with no intervention. Subsequent EKGs have been sinus rhythm. In the ED patient received 1 L NS PMHx: As above SX Hx: Cholecystectomy, gastric sleeve, back surgeries Social Hx: Denies cigarette use, denies illicit substances including THC, patient drinks 1 beer daily FH X: Unknown Review of Systems Review of Systems Systems Reviewed: All systems reviewed, normal except as documented Narrative Review of Systems: All 12 systems reviewed and found negative unless otherwise stated in the HPI. Exam Vital Signs Temp Pulse Resp BP Pulse Ox O2 Del Method 98.2 F 70 17 114/71 93 L Room Air 05/09/25 20:00 05/09/25 20:00 05/09/25 20:00 05/09/25 20:00 05/09/25 20:00 05/09/25 20:00 Narrative Exam Physical Exam GENERAL: NAD, AAOx3 HEENT: Dry mucosa. Eyes open, symmetrical, & clear CARDIO: Heart RRR, no obvious murmurs PULM: No noted coughing/dyspnea CTA B/L, no R/W/R GI: Abdomen soft, nondistended, no pain on palpation. BSx4 SKIN/MSK/EXT: No wounds/rashes/edema/amputations, no pain on palpation. Pedal pulses present B/L NEURO: AAOx3, no focal neuro deficits, able to move all 4 extremities Results: Labs 05/09/25 17:08 05/09/25 17:08 Labs: Short CBC 05/09/25 Range/Units 17:08 WBC 12.4 H (3.8-10.6) Thou/mm3 Hgb 15.3 (13.5-16.0) g/dL Hct 45.1 (41.0-53.0) % Plt Count 303 D (140-440) Thou/mm3 BMP 05/09/25 17:08 Sodium 140 Potassium 5.0 Chloride 106 Carbon Dioxide 26.4 BUN 31 H Creatinine 1.5 H Glucose 118 H Calcium 8.8 Cardiac Enzymes 05/09/25 Range/Units 17:08 Troponin I < 0.020 (0.0-0.045) ng/mL Liver Function 05/09/25 Range/Units 17:08 Total Bilirubin 0.5 (0.3-1.2) mg/dL AST 20 (0-34) U/L ALT 41 (10-49) U/L Alkaline Phosphatase 97 (46-116) U/L Albumin 4.1 (3.4-4.8) gm/dL Urine 05/09/25 Range/Units 19:08 Urine Color Lt-Yellow (Lt Yel-Yel) Urine Clarity Clear (Clear/Hazy) Urine pH 6.0 (5.0-7.0) Ur Specific [place] 1.020 (1.001-1.035) Urine Protein Negative (Neg - Trace) Urine Glucose (UA) Negative (Negative) Quality Measures Quality Measures none Advance care planning discussed with:: patient and spouse Medications Home Medications and Allergies Home Medications ?Medication ?Instructions ?Recorded ?Confirmed ?Type losartan 100 mg tablet 100 mg PO DAILY 09/26/24 11/30/24 History diltiazem HCl 180 mg 180 mg PO Q24H 05/09/25 05/09/25 History tablet,extended release 24 hr olmesartan 40 1 tab PO DAILY 05/09/25 05/09/25 History mg-hydrochlorothiazide 12.5 mg tablet Allergies Allergy/AdvReac Type Severity Reaction Status Date / Time No Known Allergies Allergy Verified 05/09/25 16:32 Visit Medications Acetaminophen (Acetaminophen 325 Mg Tablet) 650 mg PO Q6H PRN PRN Reason: Fever >99.5 Stop: 06/08/25 21:17 Acetaminophen (Acetaminophen 325 Mg Tablet) 1,000 mg PO Q6H PRN PRN Reason: PAIN SCALE 1-3 (mild Stop: 06/08/25 21:17 Heparin Sodium (Porcine) (Heparin Sod Inj 5000 Unit/Ml Vial) 4,000 unit IV X1 ONE; Protocol Stop: 05/09/25 21:26 Sodium Chloride (Ns) 1,000 mls @ 75 mls/hr IV .[id number] LEMUEL Stop: 06/08/25 21:29 Heparin Sodium/Dextrose (Heparin In D5w Ivpb) 25,000 unit in 250 mls @ 8.437 mls/hr IV .Q24H LEMUEL; Protocol Stop: 05/23/25 21:29 Non-Formulary Medication (Diltiazem Hcl) 180 mg PO Q24H LEMUEL Stop: 06/09/25 08:59 Ondansetron HCl (Ondansetron Inj 2 Mg/Ml Inj 2 Ml) 4 mg IVP Q6H PRN; Protocol PRN Reason: NAUSEA OR VOMITING Stop: 06/08/25 21:17 Pantoprazole Sodium (Pantoprazole 40 Mg Tablet) 40 mg PO QDAY LEMUEL Stop: 06/09/25 08:59 Discontinued Medications Sodium Chloride (Ns) 1,000 mls @ 999 mls/hr IV .Q1H1M ONE Stop: 05/09/25 21:09 Last Admin: 05/09/25 20:55 Dose: 999 mls/hr Assessment & Plan Plan 79-year-old male with past medical history of hypertension, paroxysmal A-fib, GERD who presented to the ED due to dizziness. #Paroxysmal Atrial fibrillation #Hypertension This afternoon patient started feeling what he describes as palpitations, he states he has had these before however today they felt worse and decided to come to the ED. Patient also endorses some blurry vision, dizziness, decreased energy and a burning sensation in the epigastric area and generalized weakness. He also states he felt some mild chest pain rated 1?2 out of 10 on his left side described as stabbing and pressure-like with associated shortness of breath. Initial EKG showed Atrial fibrillation with RVR rate ~120s, however converted to sinus rhythm with no medical intervention. Subsequent EKGs show sinus rhythm Patient takes eliquis however would not like to take at this time as he is scheduled for hernia repair surgery. currently normotensive and in sinus rhythm CHADVASC: 3; 3.2% stroke risk HASBLED: 2; moderate risk for major bleeding ? Echo ordered ? Monitor telemetry ? Keep K> 4, Mg> 2 ? Low-sodium diet ? Resume diltiazem 180 mg as taken at home starting in the a.m. ? No amiodarone as per cardiology recommendations ? Heparin drip ? Cardiology consulted, appreciate recs #LATA Likely prerenal azotemia in the setting of dehydration Baseline creatinine around 0.9?1.1 Current creatinine 1.5 ? IV fluids ? Avoid DELIA/ARBs ? Renally dose medications ? Avoid nephrotoxins #GERD ? pantoprazole 40mg qday Health Maintenance: Disposition: Telemetry, observation, pending echo Fluids: NS Feeding: Low-sodium diet Thrombo prophylaxis: Heparin Gastric Ulcer prophylaxis: Pantoprazole CODE STATUS: Full code Case discussed with my attending Dr. Addy Savage MD PGY-1 Disclaimer: Despite multiple revisions, due to the dictation software being used, the document bellow may not be free of grammatical errors including phonetic/typographic errors. However, this does not deter from our commitment to providing health care in the patient's best interest in mind.
--- NOTE | 2025-05-09 21:30 | PD.IMCONS ---
HPI Data of Consult Patient: new to practice Consult date: 05/09/25 Requesting Physician: Teo Daly MD Primary Care Provider: Lenora Davis MD Consult Narrative Reason for consult: Afib with RVR History of present illness: 79-year-old male with a past medical history of new onset paroxysmal atrial fibrillation with RVR diagnosed in 2024 on anticoagulation which is held for his surgery for hiatal hernia next week, essential hypertension, BPH with LUTS, history of prostate cancer, gastritis, esophageal ulcers, hiatal hernia, cholelithiasis s/p cholecystectomy presented to the emergency department for further evaluation of palpitations as well as dizziness this afternoon. 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 Quinonez and was started on amiodarone, diltiazem as well as Eliquis for anticoagulation. Patient then return for follow-up was scheduled for a elective surgery at [facility] for hiatal hernia. He was recommended to stop amiodarone and also his Eliquis few days prior in preparation for the procedure . 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 Patient has been doing well for a few days after but has been feeling decreased energy since yesterday. Patient today could feel his palpitations and had some dizziness along with some blurry vision and some burning sensation in the epigastric area along with generalized weakness. Patient also involved so decreased oral intake and of note patient also drinks 1 beer every day. Denies any kind of chest pain chest pressure or orthopnea or PND or leg swelling or syncope or fall. In the emergency department patient was noted to have atrial fibrillation with RVR and EKG did show A-fib with RVR with no other acute ST-T changes. Heart rate was around 120 to 135 bpm blood pressure was 117/70 mmHg his saturation was 95% on room air. Patient did receive some IV fluids after which he converted to normal sinus rhythm. Labs showed elevated BUN at 31 and creatinine at 1.5 it is his baseline is 1.0. Troponin was negative along with the BNP UA CT head as well as chest x-ray was negative. Cardiology was consulted for further evaluation of the A-fib with RVR. cc:: cc: Teo Daly MD Review of Systems Review of Systems Systems Reviewed: All systems reviewed, normal except as documented Meds Home Medications and Allergies Home Medications ?Medication ?Instructions ?Recorded ?Confirmed ?Type losartan 100 mg tablet 100 mg PO DAILY 09/26/24 11/30/24 History diltiazem HCl 180 mg 180 mg PO Q24H 05/09/25 05/09/25 History tablet,extended release 24 hr olmesartan 40 1 tab PO DAILY 05/09/25 05/09/25 History mg-hydrochlorothiazide 12.5 mg tablet Allergies Allergy/AdvReac Type Severity Reaction Status Date / Time No Known Allergies Allergy Verified 05/09/25 16:32 Exam Vital Signs Temp Pulse Resp BP Pulse Ox O2 Del Method 97.6 F 86 17 144/79 H 96 Room Air 05/09/25 23:40 05/09/25 23:40 05/09/25 23:40 05/09/25 23:40 05/09/25 23:40 05/09/25 23:40 Narrative Exam General: Alert and oriented x3. In no acute distress. Eyes: Pupils are equal and reactive to light bilaterally. HEENT: Atraumatic, normocephalic. No JVD noted. Mucosa moist. Cardiovascular: Normal S1 and S2. Normal rate and regular rhythm. No murmurs appreciated. No peripheral pitting edema noted. Respiratory: No respiratory distress. Lungs are clear to auscultation bilaterally. No wheezing or crackles heard. Abdomen: Soft, nontender, nondistended. Skin: No rash. Warm to touch. Musculoskeletal: No gross injuries. Able to move all 4 extremities. Neuro: Alert and oriented x3. No focal neuro deficits. Psych: Normal affect and mood Results Labs 05/09/25 17:08 05/09/25 17:08 Labs: Short CBC 05/09/25 Range/Units 17:08 WBC 12.4 H (3.8-10.6) Thou/mm3 Hgb 15.3 (13.5-16.0) g/dL Hct 45.1 (41.0-53.0) % Plt Count 303 D (140-440) Thou/mm3 BMP 05/09/25 17:08 Sodium 140 Potassium 5.0 Chloride 106 Carbon Dioxide 26.4 BUN 31 H Creatinine 1.5 H Glucose 118 H Calcium 8.8 Cardiac Enzymes 05/09/25 05/09/25 Range/Units 17:08 23:06 Troponin I < 0.020 < 0.020 (0.0-0.045) ng/mL Liver Function 05/09/25 Range/Units 17:08 Total Bilirubin 0.5 (0.3-1.2) mg/dL AST 20 (0-34) U/L ALT 41 (10-49) U/L Alkaline Phosphatase 97 (46-116) U/L Albumin 4.1 (3.4-4.8) gm/dL Urine 05/09/25 Range/Units 19:08 Urine Color Lt-Yellow (Lt Yel-Yel) Urine Clarity Clear (Clear/Hazy) Urine pH 6.0 (5.0-7.0) Ur Specific [place] 1.020 (1.001-1.035) Urine Protein Negative (Neg - Trace) Urine Glucose (UA) Negative (Negative) Assessment and Plan Additional Assessment & Plan Additional Plan: 79-year-old male with a past medical history of new onset paroxysmal atrial fibrillation with RVR diagnosed in 2024 on anticoagulation which is held for his surgery for hiatal hernia next week, essential hypertension, BPH with LUTS, history of prostate cancer, gastritis, esophageal ulcers, hiatal hernia, cholelithiasis s/p cholecystectomy presented to the emergency department for further evaluation of palpitations as well as dizziness this afternoon. Assessment and plan 1. Atrial fibrillation with RVR 2. Acute kidney injury 3. Essential hypertension 4. BPH with LUTS with history of prostate cancer s/p treatment 5. Hiatal hernia-scheduled for surgery next week at [facility] 6. History of gastritis and esophageal ulcers 7. Cholelithiasis s/p cholecystectomy Patient presented with atrial fibrillation with RVR probably in the setting of dehydration with mild acute kidney injury. Patient was recently started on olmesartan HCTZ for his hypertension and was on losartan for more than 20 years and patient presently and did not feel well with his new medication. Possible trigger was dehydration with mild LATA Patient converted to normal sinus rhythm with IV fluids. Patient on diltiazem 180 mg once daily at home which we recommend to continue and can be increased to 40 mg once daily if blood pressure is permissible. Patient was given amiodarone initially as outpatient by Dr. Quinonez which has been discontinued and no need of any amiodarone at the present moment. No Eliquis for now and preparation for possible surgery next week at [facility] Okay for heparin drip for anticoagulation while in-house for now. Continue IV fluids and treat the LATA Mitchell potassium greater than 4 and magnesium greater than 2.0 at all times Telemetry monitoring for now. 2. Acute kidney injury: Patient baseline creatinine around 0.9-1.0. BUN is 31 creatinine 1.5 Patient was recently started on olmesartan HCTZ in which she recommend to stop at the present moment. Also patient has been poorly intake over the last 1 to 2 days. Patient can be restarted on ARB but no hydrochlorothiazide Continue IV fluids and repeat renal function tomorrow morning. 3. Essential hypertension: On diltiazem 180 mg once daily and recommend to increase to to 40 mg if blood pressure permissible. If BP high - low-dose ARB losartan 25 at low-dose olmesartan but no 4. Hiatal hernia-patient is scheduled for surgery at [facility] next Thursday. He did have a EGD with Dr. Obregon which showed gastritis along with some small esophageal ulcers previously. Management of rest of the medical conditions as per primary team and other consultants. Thank you for the consult and allowing me to participate in the care of the patient. Cardiology will continue to follow. Flakito Peña M.D. Interventional Cardiology
[2025-05-09 22:00] VITALS: BP 118/71; PULSE 63; RESP 18; TEMP 36.8; O2SAT 95
[2025-05-09] MEDS: HEPARIN SOD INJ 5000 UNIT/ML VIAL 4000 UNIT IV (22:18)
[2025-05-09] MEDS: Heparin/D5w 25K 250 ML Ivpb 25,000 UNIT/250 ML BAG 8.437 UNIT IV (22:19)
[2025-05-09] MEDS: SODIUM CHLORIDE 0.9% 1000 ML 1,000 ML 75 ML IV (22:21)
--- NOTE | 2025-05-09 23:07 | PC.NURSE ---
report called to floor nurse, RENA Rollins
[2025-05-09 23:29] LABS: Troponin I < 0.020 ng/mL (0.0-0.045)
[2025-05-09 23:40] VITALS: BP 144/79; PULSE 86; RESP 17; TEMP 36.4; O2SAT 96
[2025-05-10 04:00] VITALS: BP 139/80; PULSE 54; PULSE 60; RESP 16; TEMP 36.6; O2SAT 97
[2025-05-10 05:48] VITALS: BMI 23.0
[2025-05-10 06:01] LABS: Basophils % (Auto) 0 % (0-2.5); Eosinophils # (Auto) 0.1 Thou/mm3 (0.0-0.5); Eosinophils % (Auto) 1 % (0-10); Hematocrit 41.9 % (41.0-53.0); Hemoglobin 14.2 g/dL (13.5-16.0); Immature Granulocytes % (Auto) 1 % (0-0); Immature Granulocytes Auto 0.06 Thou/mm3 (0.00-0.00); Lymphocytes # (Auto) 2.3 Thou/mm3 (1.0-4.8); Lymphocytes % (Auto) 26 % (10-50); Mean Corpuscular HGB Conc 33.9 g/dl (31.0-37.0); Mean Corpuscular Hemoglobin 31.7 pg (25.0-35.0); Mean Corpuscular Volume 94 fL (80-100); Monocytes # (Auto) 0.7 Thou/mm3 (0.0-0.8); Monocytes % (Auto) 7 % (0-12); Neutrophils # (Auto) 5.8 Thou/mm3 (1.8-7.7); Neutrophils % (Auto) 65 % (37-80); Nucleated Red Blood Cell % 0 /100 WBC (0); Platelet Count 269 Thou/mm3 (140-440); RDW Standard Deviation 45.2 fL (35.1-43.9); Red Blood Count 4.48 Miln/mm3 (4.50-5.90)
[2025-05-10 06:04] LABS: Alanine Aminotransferase 33 U/L (10-49); Albumin, Serum 3.8 gm/dL (3.4-4.8); Alkaline Phosphatase 85 U/L (46-116); Anion Gap 9 (7-16); Aspartate Amino Transferase 19 U/L (0-34); BUN/Creatinine Ratio 24 Ratio (12-20); Bilirubin,Total 0.8 mg/dL (0.3-1.2); Blood Urea Nitrogen 24 mg/dL (9-23); Calcium 8.4 mg/dL (8.3-10.6); Calcium (Corrected) 8.6 mg/dL (8.5-10.1); Carbon Dioxide 24.2 mMol/L (20.0-31.0); Cardiac Risk Estimate 2.3 RATIO (4.0-6.7); Chloride 107 mMol/L (98-107); Cholesterol 146 mg/dL (132-200); Estimated Creatinine Clearance 61.6 mL/min (>60); Globulin 1.9 gm/dL (2.3-3.5); Glucose 104 mg/dL (74-106); HDL Cholesterol 64 mg/dL (40-60); LDL Cholesterol,Calculated 69 mg/dL (0-130); Magnesium 2.2 mg/dL (1.6-2.6); Osmolality,Calculated 283 (275-295); Potassium 4.8 mMol/L (3.4-5.1); Sodium 140 mMol/L (136-145); Thyroid Stimulating Hormone 3.39 uIU/mL (0.55-4.78); Total Protein 5.7 gm/dL (5.7-8.2); Triglycerides 65 mg/dL (30-150); eGFR > 60 See Note
[2025-05-10 07:08] VITALS: PULSE 59; RESP 16; RESP 96
[2025-05-10 07:34] LABS: Glucose Estimated Average 103 mg/dL (80-131); Hemoglobin A1C 5.2 % Hgb (4.8-6.0)
[2025-05-10 08:00] VITALS: BP 140/79; PULSE 60; PULSE 68; RESP 19; TEMP 36.8; O2SAT 95
[2025-05-10 08:37] VITALS: BP 140/79; PULSE 60
[2025-05-10] MEDS: DILTIAZEM CD 180 MG CAPCR PO (08:37)
[2025-05-10] MEDS: carVEDILOL 3.125 MG TABLET 6.25 MG PO (08:37)
[2025-05-10] MEDS: PANTOPRAZOLE 40 MG TABLET PO (08:37)
--- NOTE | 2025-05-10 09:00 | PD.IMPROG ---
Documentation for date of: 05/10/25 Exam Vital Signs Temp Pulse Resp BP Pulse Ox O2 Del Method 98.1 F 62 17 148/85 H 98 Room Air 05/10/25 12:00 05/10/25 12:00 05/10/25 12:00 05/10/25 12:00 05/10/25 12:00 05/10/25 12:00 Objective Labs 05/10/25 05:17 05/10/25 05:17 Labs: Laboratory Results - last 24 hr 05/09/25 05/09/25 05/09/25 17:08 19:08 23:06 WBC 12.4 H RBC 4.83 Hgb 15.3 Hct 45.1 MCV 93 MCH 31.7 MCHC 33.9 RDW Std Deviation 44.4 H Plt Count 303 D Neut % (Auto) 70 Lymph % (Auto) 21 [place] % (Auto) 8 Eos % (Auto) 0 Baso % (Auto) 0 Neut # (Auto) 8.7 H Lymph # (Auto) 2.6 [place] # (Auto) 1.0 H Eos # (Auto) 0.0 Baso # (Auto) 0.0 Immature Gran # (Auto) 0.08 H Absolute Nucleated RBC 0.00 Immature Gran % 1 H Nucleated RBC % 0 PT 10.4 INR 0.9 APTT 25.1 Sodium 140 Potassium 5.0 Chloride 106 Carbon Dioxide 26.4 Anion Gap 8 BUN 31 H Creatinine 1.5 H Estim Creat Clear Calc 39.7 L eGFR 47 L BUN/Creatinine Ratio 21 H Glucose [address] Glu mg/dL Hemoglobin A1c Calculated Osmolality 286 Calcium 8.8 Corrected Calcium 8.8 Phosphorus Magnesium 2.4 Total Bilirubin 0.5 AST 20 ALT 41 Alkaline Phosphatase 97 Troponin I < 0.020 < 0.020 B-Natriuretic Peptide < 20 Total Protein 6.2 Albumin 4.1 Globulin 2.1 L Albumin/Globulin Ratio 2.0 Triglycerides Cholesterol LDL Cholesterol, Calc HDL Cholesterol Cholesterol/HDL Ratio TSH Ur Collection Type Clean Catch Urine Color Lt-Yellow Urine Clarity Clear Urine pH 6.0 Ur Specific [place] 1.020 Urine Protein Negative Urine Glucose (UA) Negative Urine Ketones Negative Urine Blood Negative Urine Nitrite Negative Urine Bilirubin Negative Urine Urobilinogen (Auto) Negative Ur Leukocyte Esterase Negative Urine RBC 4 H Urine WBC 2 Ur Squamous Epith Cells 0 Urine Bacteria None Urine Opiates Screen Negative Urine Fentanyl Screen Negative Ur Barbiturates Screen Negative U Amphetamin/Meth Scrn Negative U Benzodiazepines Scrn Negative U Cocaine Metab Screen Negative U Marijuana (THC) Screen Negative 05/10/25 05:17 WBC 9.0 RBC 4.48 L Hgb 14.2 Hct 41.9 MCV 94 MCH 31.7 MCHC 33.9 RDW Std Deviation 45.2 H Plt Count 269 D Neut % (Auto) 65 Lymph % (Auto) 26 [place] % (Auto) 7 Eos % (Auto) 1 Baso % (Auto) 0 Neut # (Auto) 5.8 Lymph # (Auto) 2.3 [place] # (Auto) 0.7 Eos # (Auto) 0.1 Baso # (Auto) 0.0 Immature Gran # (Auto) 0.06 H Absolute Nucleated RBC 0.00 Immature Gran % 1 H Nucleated RBC % 0 PT INR APTT 50.0 H D Sodium 140 Potassium 4.8 Chloride 107 Carbon Dioxide 24.2 Anion Gap 9 BUN 24 H Creatinine 1.0 D Estim Creat Clear Calc 61.6 eGFR > 60 BUN/Creatinine Ratio 24 [address] Glucose [address] Glu mg/dL 103 Hemoglobin A1c 5.2 Calculated Osmolality 283 Calcium 8.4 Corrected Calcium 8.6 Phosphorus 4.0 Magnesium 2.2 Total Bilirubin 0.8 AST 19 ALT 33 Alkaline Phosphatase 85 Troponin I B-Natriuretic Peptide Total Protein 5.7 Albumin 3.8 Globulin 1.9 L Albumin/Globulin Ratio 2.0 Triglycerides 65 Cholesterol 146 LDL Cholesterol, Calc 69 HDL Cholesterol 64 H Cholesterol/HDL Ratio 2.3 L TSH 3.39 Ur Collection Type Urine Color Urine Clarity Urine pH Ur Specific [place] Urine Protein Urine Glucose (UA) Urine Ketones Urine Blood Urine Nitrite Urine Bilirubin Urine Urobilinogen (Auto) Ur Leukocyte Esterase Urine RBC Urine WBC Ur Squamous Epith Cells Urine Bacteria Urine Opiates Screen Urine Fentanyl Screen Ur Barbiturates Screen U Amphetamin/Meth Scrn U Benzodiazepines Scrn U Cocaine Metab Screen U Marijuana (THC) Screen Assessment & Plan A&P Narrative 79-year-old male with a past medical history of new onset paroxysmal atrial fibrillation with RVR diagnosed in 2024 on anticoagulation which is held for his surgery for hiatal hernia next week, essential hypertension, BPH with LUTS, history of prostate cancer, gastritis, esophageal ulcers, hiatal hernia, cholelithiasis s/p cholecystectomy presented to the emergency department for further evaluation of palpitations as well as dizziness this afternoon. Assessment and plan 1. Atrial fibrillation with RVR 2. Acute kidney injury 3. Essential hypertension 4. BPH with LUTS with history of prostate cancer s/p treatment 5. Hiatal hernia-scheduled for surgery next week at [facility] 6. History of gastritis and esophageal ulcers 7. Cholelithiasis s/p cholecystectomy Patient presented with atrial fibrillation with RVR probably in the setting of dehydration with mild acute kidney injury. Patient was recently started on olmesartan HCTZ for his hypertension and was on losartan for more than 20 years and patient presently and did not feel well with his new medication. Possible trigger was dehydration with mild LATA Patient converted to normal sinus rhythm with IV fluids. Patient on diltiazem 180 mg once daily at home which we recommend to continue and can be increased to 40 mg once daily if blood pressure is permissible. Patient was given amiodarone initially as outpatient by Dr. Quinonez which has been discontinued and no need of any amiodarone at the present moment. No Eliquis for now and preparation for possible surgery next week at [facility] Okay for heparin drip for anticoagulation while in-house for now. Continue IV fluids and treat the LATA Mitchell potassium greater than 4 and magnesium greater than 2.0 at all times Telemetry monitoring for now. 2. Acute kidney injury: Patient baseline creatinine around 0.9-1.0. BUN is 31 creatinine 1.5 Patient was recently started on olmesartan HCTZ in which she recommend to stop at the present moment. Also patient has been poorly intake over the last 1 to 2 days. Patient can be restarted on ARB but no hydrochlorothiazide Continue IV fluids and repeat renal function tomorrow morning. 3. Essential hypertension: On diltiazem 180 mg once daily and recommend to increase to to 40 mg if blood pressure permissible. If BP high - low-dose ARB losartan 25 at low-dose olmesartan but no 4. Hiatal hernia-patient is scheduled for surgery at [facility] next Thursday. He did have a EGD with Dr. Obregon which showed gastritis along with some small esophageal ulcers previously. Management of rest of the medical conditions as per primary team and other consultants. Thank you for the consult and allowing me to participate in the care of the patient. Cardiology will continue to follow. Flakito Peña M.D. Interventional Cardiology Time Spent With Patient Time: Total time spent is greater than 50% in coordination of care (as documented) at patient's floor/unit and/or counseling patient:
--- NOTE | 2025-05-10 10:20 | PC.SS ---
Update: Echo is pending.
--- NOTE | 2025-05-10 10:56 | ESDS_ITS ---
<Statement entered by Mounika Perez MD - 05/16/25 08:59> I reviewed above note and agree with findings and plans. I have also personally examined the patient with medicine team and went over assessment and plan with medical team including chief internal auditor and resident physician. Planned Discharge Date 05/10/25 DS: Providers Provider Date of admission: 05/09/25 21:18 Primary care physician: Lenora Davis MD Admitting Provider: Teo Daly MD Attending Provider on Admission: Mounika Perez MD Consults: 05/09/25 20:09 Consult to Cardiology Stat Comment: Consulting Provider: Flakito Peña Attending Provider on DC: Rekha Daly MD Discharging Provider: Rekha Daly MD DS: Diagnosis Problem List Completed Was Problem List Reviewed/Reconciled?: Yes Hospital Course Hospital Course Hospital course: Mr. Mcnulty is a 79-year-old male with past medical history of hypertension, paroxysmal A-fib, GERD who presented to [facility] ED on 05/09/25 complaining of dizziness and blurry vision. ON the ED EKG pt was found to have A-fib with RVR rate of 120 and acute kidney injury. Pt was given 1L fluid which converted him back to sinus rhythm without further intervention. Pt sees site interpreter Dr. Quinonez regularly, and his home eliquis was held because patient is scheduled for hiatal hernia repair surgery at [facility] on thursday05/15/25. Pt's LATA has resolved after IV hydration and has remained in sinus rhythm. Per cardiology recomendation, pt is safe to be discharge home with increase dose of diltiazem 240mg ,hold olmesartan-hydrochlorothiazide and eliquis and follow up outpatient with Remote Control Assembler Dr. Quinonez regarding when to resume. Pt is stable to be discharged home to self care. Discharge Recommendations -Follow up with primary care physician within 1 week of discharge -Follow up with your cardiology Dr. Quinonez after your surgery, to make adjustments on your medications -We are holding all of your medications until surgery except increasing the dose of Diltiazem to 240mg daily until you see Dr. Quinonez -Return to the ED or call EMS if symptoms return and/or worsen Hospitalization Diagnosis #Paroxysmal Atrial fibrillation-resolved #Primary Hypertension #LATA-resolved #GERD Time Spent with Patient Time attestation: Total time spent providing and/or coordinating discharge services: Time spent: Greater than 30 minutes Exam Vital Signs Temp Pulse Resp BP Pulse Ox O2 Del Method 98.3 F 60 19 140/79 H 95 Room Air 05/10/25 08:00 05/10/25 08:37 05/10/25 08:00 05/10/25 08:37 05/10/25 08:00 05/10/25 08:00 Narrative Exam GENERAL: A&Ox3 . Awake, Not in acute distress NEURO: no focal neurological deficits HEENT: Atraumatic, Normocephalic. mucous membranes moist. Eyes open, symmetrical, & clear HEART: Normal Heart Sounds LUNGS: Clear to auscultation with no wheezing or crackles. ABDOMEN: soft, non-distended, non-tender, bowel sounds heard, no guarding or rebound tenderness SKIN: No Rash or ecchymoses EXTREMITIES: No edema, tenderness, able to move all 4 extremities, pedal pulses palpated Discharge Plan Plan Patient Disposition: HOME (Self Care) Patient condition on transfer: Stable Care Plan Goals: -Follow up with primary care physician within 1 week of discharge -Follow up with your cardiology Dr. Quinonez after your surgery, to make adjustments on your medications -We are holding all of your medications until surgery except increasing the dose of Diltiazem to 240mg daily until you see Dr. Quinonez -Return to the ED or call EMS if symptoms return and/or worsen Prescriptions/Referrals Prescriptions/Med Rec: New diltiazem HCl 240 mg capsule,extended release 24hr 240 mg PO QDAY Qty: 30 0RF Continued omeprazole 40 mg capsule,delayed release(DR/EC) 40 mg PO QDAY Patient Comments: TAKE 1 CAPSULE BY MOUTH EVERY DAY Discontinued diltiazem HCl 180 mg tablet extended release 24 hr 180 mg PO Q24H Patient Comments: TAKE 1 TABLET BY MOUTH DAILY olmesartan-hydrochlorothiazide 40-12.5 mg tablet 1 tab PO DAILY Patient Comments: TAKE 1 TABLET BY MOUTH DAILY Referrals: Lenora Davis MD [Primary Care Provider] - Patient/Caregiver Discharge Instructions Education Materials: AFL/Afib Print Language: Korean Stand Alone Forms: Sharon Award Info., Patient Portal Info Letter, Work/Release Restrictions Discharge Order Discharge Orders: Discharge (Routine); Ordered 05/10/25 Ordered By: Rekha Daly Quality Discharge Quality Measures VTE prophylaxis
[2025-05-10 12:00] VITALS: BP 148/85; PULSE 62; PULSE 65; RESP 17; TEMP 36.7; O2SAT 98
== END 2025-05-10 12:44 | disposition home or self-care (01) ==
LOC: SERX 20:28 → SERHOLD 21:36 → S2NX 05-10 07:03
PROVIDERS: Nurse Practitioner Primary Care; Student in an Organized Health Care Education/Training Program; Admitting Provider Student in an Organized Health Care Education/Training Program; Emergency Provider Emergency Medicine; PCP Internal Medicine; Visit Provider Internal Medicine
DX: I48.0 Paroxysmal atrial fibrillation (principal); I10 Essential (primary) hypertension; K21.9 Gastro-esophageal reflux disease without esophagitis; K44.9 Diaphragmatic hernia without obstruction or gangrene; N17.9 Acute kidney failure, unspecified; N40.1 Benign prostatic hyperplasia with lower urinary tract symptoms; Z85.46 Personal history of malignant neoplasm of prostate; Z87.19 Personal history of other diseases of the digestive system; Z90.49 Acquired absence of other specified parts of digestive tract; Z01.810 Encounter for preprocedural cardiovascular examination
CPT/HCPCS: 36415; 70450; 71046; 80053; 80061; 80307; 81001; 83036; 83735; 83880; 84100; 84443; 84484; 85025; 85610; 85730; 87811; 93005; 96365; 96366; 99285; G0378; J1644; J7030; A9270

== ENCOUNTER → 2025-11-22 | Outpatient (CLI) | payer MEDICARE, BC, SELFPAY ==
[2025-11-22 13:33] LABS: Prostate Specific Antigen 8.25 ng/mL (0-4.00)
== END | disposition home or self-care (01) ==
LOC: COPL 12:54
PROVIDERS: PCP Internal Medicine; Referring Provider Urology; Visit Provider Urology
DX: C61 Malignant neoplasm of prostate (principal)
CPT/HCPCS: 36415; 84153